=== PATIENT | female | born 1975 | race American Indian/Alaskan Native ===

== ENCOUNTER 2017-10-23 00:35 | Emergency (ER) | payer MEDICAID, OTHER ==
--- NOTE | 2017-10-23 01:20 | C.PDOC ---
History Of Present Illness 42 yo female come in for evaluation of Left shoulder pain developed for past 3 days " after had Cortison injection to my left shoulder". Pt sts, pain is localized over left shoulder, worse with movement, " my shoulder feels stiff now ". Otherwise, pt denies fever, chills, skin changed, weakness, sensory or vascular deficits to left arm, denies CP, SOB, dyspnea, palpitation or any other complaints. Time Seen by Provider: 10/23/17 01:02 Chief Complaint (Nursing): Upper Extremity Problem/Injury History Per: Patient Past Medical History Reviewed: Historical Data, Nursing Documentation, Vital Signs Vital Signs: Last Vital Signs Temp 98.2 F 10/23/17 00:41 Pulse 77 10/23/17 00:41 Resp 22 10/23/17 00:41 BP 118/78 10/23/17 00:41 Pulse Ox 99 10/23/17 00:41 - Medical History PMH: Anemia, Asthma, Depression, Hypothyroidism Denies: Seizures - [facility] Procedures CYSTOSCOPY NEC (12/01/13) D & C NEC (12/01/13) HEMORRHOIDECTOMY (04/27/13) LAPAROSCOP LYSIS-PERITONEAL ADHES (12/01/13) LAPAROSCOPIC TOTAL ABDOMINAL HYSTERECTOMY (12/01/13) REMOVE BOTH FALLOP TUBES (12/01/13) Family History: States: Unknown Family Hx - Social History Hx Tobacco Use: No Hx Alcohol Use: No Hx Substance Use: No - Immunization History Hx Tetanus Toxoid Vaccination: No Hx Influenza Vaccination: No Hx Pneumococcal Vaccination: No Review Of Systems Except As Marked, All Systems Reviewed And Found Negative. Constitutional: Negative for: Fever, Chills ENT: Negative for: Throat Pain Cardiovascular: Negative for: Chest Pain, Palpitations, Edema, Light Headedness Respiratory: Negative for: Cough, Shortness of Breath Genitourinary: Negative for: Dysuria Musculoskeletal: Positive for: Shoulder Pain. Negative for: Neck Pain, Back Pain Skin: Negative for: Rash, Bruising Neurological: Negative for: Weakness, Numbness, Headache, Dizziness Physical Exam - Physical Exam Appears: Well, Non-toxic, No Acute Distress Skin: Normal Color, Warm, No Rash, No Ecchymosis Head: Atraumatic, Normacephalic Eye(s): bilateral: PERRL Neck: Trachea Midline, No Midline Cervical Tenderness, No Paracervical Tenderness, No Step Off Deformity, Supple Chest: Symmetrical, No Deformity, No Tenderness Cardiovascular: Rhythm Regular Respiratory: No Decreased Breath Sounds, No Accessory Muscle Use, No Stridor, No Wheezing Extremity: Normal ROM (mod discomfort to Left shoulder extension/felxion due to pain. No neurovascular deficits.), Tenderness (diffuse left shoulder. No palpable deformity, no neurovascular deficits. No skin changes.), No Deformity, No Swelling Neurological/Psych: Oriented x3, Normal Speech, Normal Cognition, Normal Motor, Normal Sensation, Normal Reflexes ED Course And Treatment O2 Sat by Pulse Oximetry: 99 Pulse Ox Interpretation: Normal Progress Note: On re-evaluation, pt is comfortable, not in any apparent distress. afebrile, hemodynamicaly stable. Non-toxic. PulseOx 99% RA. neck; Supple, (-) midline tenderness, (-) JVD. Lungs: CTA B/L, BS equal B/L. CVS: (+ )S1S2, reg. LUE: diffuse shoulder tenderness, no skin changes, no palpable deformity, no neurovascular deficits. Neurologicaly intact. Pt advised on course of ds. ref. to f/u with Ortho in 1-2 days for re-evaluation. Return to ED if any worsening or new changes. Disposition Counseled Patient/Family Regarding: Diagnosis, Need For Followup, Rx Given - Disposition Referrals: Zaida Gillette MD [Staff Provider] - Disposition: HOME/ ROUTINE Disposition Time: 01:16 Condition: STABLE Additional Instructions: Sling Take pain medication as prescribed Follow up with Orthopedist in 1-2 days for re-evaluation. Return to ED if any worsening or new changes. Prescriptions: traMADol [Ultram] 50 mg PO TID #7 tab Instructions: Tendonitis, Shoulder Pain (DC) - Clinical Impression Clinical Impression: Shoulder tendonitis
[2017-10-23 12:03] VITALS: BP 113/73; PULSE 65; RESP 18; TEMP 98; O2SAT 99
[2017-10-23 12:05] VITALS: BMI 24.0
== END 2017-10-23 01:59 | disposition home or self-care (01) ==
LOC: C.ER 00:35
DX: M75.92 Shoulder lesion, unspecified, left shoulder (principal)

== ENCOUNTER 2018-07-21 09:08 | Emergency (ER) | payer OTHER ==
[2018-07-21 09:08] VITALS: BMI 24.0
[2018-07-21 09:21] VITALS: BP 102/69; PULSE 73; RESP 18; TEMP 97.6; O2SAT 95
--- NOTE | 2018-07-21 11:05 | C.PDOC ---
History Of Present Illness 43 years old female presents to ED for complaints of pain on the top of her right foot that began 1 week ago. Patient states she does recall any injuries or doing any extra physical activities. 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 Denies any other complaints. Time Seen by Provider: 07/21/18 09:28 Chief Complaint (Nursing): Lower Extremity Problem/Injury History Per: Patient History/Exam Limitations: no limitations Onset/Duration Of Symptoms: Hrs, Waxing/Waning Recent travel outside of the [place]: No Past Medical History Reviewed: Historical Data, Nursing Documentation, Vital Signs Vital Signs: Last Vital Signs Temp 97.6 F 07/21/18 09:16 Pulse 73 07/21/18 09:16 Resp 18 07/21/18 09:16 BP 102/69 07/21/18 09:16 Pulse Ox 95 07/21/18 09:16 - Medical History PMH: Anemia, Asthma, Depression, Hypothyroidism Denies: Seizures - [facility] Procedures CYSTOSCOPY NEC (12/01/13) D & C NEC (12/01/13) HEMORRHOIDECTOMY (04/27/13) LAPAROSCOP LYSIS-PERITONEAL ADHES (12/01/13) LAPAROSCOPIC TOTAL ABDOMINAL HYSTERECTOMY (12/01/13) REMOVE BOTH FALLOP TUBES (12/01/13) Family History: States: Unknown Family Hx - Social History Hx Tobacco Use: No Hx Alcohol Use: Yes Hx Substance Use: Yes - Immunization History Hx Tetanus Toxoid Vaccination: No Hx Influenza Vaccination: No Hx Pneumococcal Vaccination: No Review Of Systems Constitutional: Negative for: Fever, Chills Musculoskeletal: Positive for: Foot Pain (Right ) Skin: Negative for: Rash Neurological: Negative for: Weakness, Numbness Physical Exam - Physical Exam Appears: Non-toxic, No Acute Distress Skin: Normal Color, Warm, Dry, No Rash Cardiovascular: Rhythm Regular Respiratory: Normal Breath Sounds, No Rales, No Rhonchi, No Wheezing Extremity: Normal ROM, Tenderness (On top of lateral right foot over 4th-5th metatarsal bone area. No Open sores. ), No Deformity, No Swelling (Or erythema ) Extremity: Bilateral: Normal Color And Temperature, Normal ROM Pulses: Left Dorsalis Pedis: Normal, Right Dorsalis Pedis: Normal Neurological/Psych: Oriented x3, Normal Speech Gait: Steady ED Course And Treatment O2 Sat by Pulse Oximetry: 95 (RA) Pulse Ox Interpretation: Normal Progress Note: Ordered foot X-Ray and advised patient she will need to follow up with Podiatry. However, patient did not wait for X-Ray to be done and she eloped. Disposition - Disposition Disposition: ELOPEMENT - ER ONLY Disposition Time: 11:05 Condition: STABLE Forms: [facility] (Swazi) - Clinical Impression Clinical Impression: Foot pain - PA / LEAD SOFTWARE QA ENGINEER / Resident Statement MD/DO has reviewed & agrees with the documentation as recorded. - Scribe Statement The provider has reviewed the documentation as recorded by the Scribe Pipo Montano All medical record entries made by the Patsy were at my direction and personally dictated by me. I have reviewed the chart and agree that the record a ccurately reflects my personal performance of the history, physical exam, medical decision making, and the department course for this patient. I have also personally directed, reviewed, and agree with the discharge instructions and disposition.
== END 2018-07-21 11:06 | disposition left against medical advice (07) ==
LOC: C.ER 09:08
DX: M79.671 Pain in right foot (principal); E03.9 Hypothyroidism, unspecified